=== PATIENT | female | born 1990 | race Caucasian/White ===

== ENCOUNTER 2020-05-06 13:15 | Inpatient (IN) | payer SELFPAY ==
[~2020-05-06] VITALS: Ht 170.2 cm; Wt 49.0 kg
[2020-05-06] MEDS: INSULIN REGULAR, HUMAN 300 UNIT/3 ML VIAL IV ONE ×2 (14:30→15:29)
[2020-05-06] MEDS ORDERED: INSULIN REGULAR, HUMAN 100 UNITS in IV NORMAL SALINE 100 ML IV ONE ×4 (14:30→16:45)
[2020-05-06] MEDS ORDERED: ONDANSETRON 4 MG/2 ML VIAL IV ONE (14:30)
[2020-05-06] MEDS ORDERED: IV NORMAL SALINE 1000 ML BAG IV ONE (14:30)
--- NOTE | 2020-05-06 14:30 | NUR ---
iv insulin not given unble to insert iv line 12u given by md egan
[2020-05-06] MEDS ORDERED: ONDANSETRON 4 MG/2 ML VIAL ONE (14:44)
[2020-05-06] MEDS ORDERED: ONDANSETRON 4 MG/2 ML VIAL IM ONE (14:45)
[2020-05-06] MEDS ORDERED: MORPHINE SULFATE 4 MG/1 ML DISP.SYRIN IM ONE (15:00)
[2020-05-06 15:10] LABS: *BILIRUBIN,URIN NEGATIVE (NEGATIVE); *CLARITY,URINE CLEAR (CLEAR); *COLOR,URINE LIGHT YELLOW (YELLOW); *KETONES,URINE 4+ (NEGATIVE); *UROBILINOGEN,URINE 0.2 E.U./dl (NORMAL); LEUKOCYTE ESTERASE ,URINE NEGATIVE (NEGATIVE); NITRITE, URINE NEGATIVE (NEGATIVE)
[2020-05-06 15:16] LABS: *AMPHETAMINE, URINE POSITIVE (NEGATIVE); *BARBITURATE, URINE NEGATIVE (NEGATIVE); *CANNABINOID, URINE NEGATIVE (NEGATIVE); *COCCAINE, URINE NEGATIVE (NEGATIVE); *OPIATE, URINE POSITIVE (NEGATIVE); *PHENCYCLIDINE SCREEN,URINE NEGATIVE (NEGATIVE)
[2020-05-06 15:18] LABS: *BLOOD, URINE TRACE (NEGATIVE); UGLUCOSE 2+ (NEGATIVE)
[2020-05-06] MEDS ORDERED: MORPHINE SULFATE 4 MG/1 ML DISP.SYRIN ONE (15:18)
[2020-05-06 15:19] LABS: ETHANOL < 3 MG/DL (0-0)
[2020-05-06] MEDS ORDERED: MORPHINE SULFATE 2 MG/1 ML DISP.SYRIN ONE (15:19)
[2020-05-06 15:30] LABS: ALANINE AMINOTRANSFERASE 39 U/L (14-59); ALKALINE PHOSPHATASE 136 U/L (50-136); ASPARTATE AMINOTRANSFERASE 39 U/L (15-37); BILIRUBIN,DIRECT 0.2 mg/dL (0.0-0.2); BILIRUBIN,TOTAL 0.6 mg/dL (0.2-1.0); CREATININE 1.6 mg/dL (0.6-1.3); TOTAL PROTEIN, SERUM 8.3 g/dL (6.4-8.2); UREA NITROGEN, BLOOD 26 mg/dL (7-18)
[2020-05-06] MEDS ORDERED: INSULIN REGULAR, HUMAN 300 UNIT/3 ML VIAL SQ ONE (15:30)
[2020-05-06] MEDS ORDERED: INSULIN REGULAR, HUMAN 300 UNIT/3 ML VIAL ONE ×2 (15:31→20:32)
[2020-05-06 15:44] LABS: CHLORIDE 85 mmol/L (98-107)
[2020-05-06] MEDS ORDERED: OLANZAPINE 10 MG VIAL IM ONE (15:45)
[2020-05-06 15:49] LABS: CARBON DIOXIDE < 5 mmol/L (21-32); GLUCOSE 772 mg/dL (74-106); POTASSIUM 6.6 mmol/L (3.5-5.1)
[2020-05-06 15:56] LABS: BASOPHILS % (AUTO) 0.4 % (0.0-2.0); EOSINOPHILS % (AUTO) 0.1 % (0.0-7.0); HEMATOCRIT 33.9 % (31.2-41.9); HEMOGLOBIN 9.9 g/dL (10.9-14.3); LYMPHOCYTES # (AUTO) 0.7 K/uL (20.0-40.0); LYMPHOCYTES % (AUTO) 7.5 % (20.5-51.5); MEAN CORPUSCULAR HEMOGLOBIN 25.9 uug (24.7-32.8); MEAN CORPUSCULAR HGB CONC 29 g/dL (32.3-35.6); MEAN CORPUSCULAR VOLUME 89.2 fL (75.5-95.3); MONOCYTES # (AUTO) 0.4 K/uL (2.0-10.0); NEUTROPHILS # (AUTO) 8.7 K/uL (1.8-8.9); PLATELET COUNT (AUTO) 398 K/uL (179-408); WHITE BLOOD COUNT (AUTO) 9.9 K/uL (3.8-11.8)
--- NOTE | 2020-05-06 16:08 | NUR ---
Pt is non compliant. ABG not done. DR. Schmidt notified.
[2020-05-06] MEDS ORDERED: ONDANSETRON 4 MG/2 ML VIAL IV PRN (16:45)
[2020-05-06] MEDS ORDERED: LORAZEPAM 2 MG/1 ML VIAL IV PRN (16:45)
[2020-05-06] MEDS ORDERED: ACETAMINOPHEN 650 MG SUPP.RECT RC PRN (16:45)
[2020-05-06 17:09] LABS: BACTERIA,URINE NONE SEEN /HPF (NONE SEEN); SQUAMOUS EPITHELIAL CELL,UR FEW /HPF (NONE SEEN); WBC,URINE 0-3 /HPF (0-3)
[2020-05-06 17:20] LABS: BAND % (MANUAL) 3 % (0-10); LYMPHOCYTES % (MANUAL) 6 % (20-40); MONOCYTES % (MANUAL) 3 % (2-10); NEUTROPHILS % (MANUAL) 88 % (42-75)
--- NOTE | 2020-05-06 17:32 | NUR ---
I will try peripheral IV line insertion, but patient is refusing@this time. notified.
--- NOTE | 2020-05-06 18:32 | NUR ---
DWIGHT [email or web address]
--- NOTE | 2020-05-06 19:00 | NUR ---
PT UNCOOPRATIVE REFUSED IV TO INSERTED AND HEAD STICK
[2020-05-06 20:07] LABS: BASOPHILS % (AUTO) 0.4 % (0.0-2.0); HEMATOCRIT 31.1 % (31.2-41.9); HEMOGLOBIN 9.8 g/dL (10.9-14.3); LYMPHOCYTES # (AUTO) 2.3 K/uL (20.0-40.0); LYMPHOCYTES % (AUTO) 20.5 % (20.5-51.5); MEAN CORPUSCULAR HEMOGLOBIN 26.1 uug (24.7-32.8); MEAN CORPUSCULAR HGB CONC 31 g/dL (32.3-35.6); MEAN CORPUSCULAR VOLUME 83.2 fL (75.5-95.3); MONOCYTES # (AUTO) 0.6 K/uL (2.0-10.0); MONOCYTES % (AUTO) 5.7 % (0.0-11.0); NEUTROPHILS # (AUTO) 8.1 K/uL (1.8-8.9); NEUTROPHILS % (AUTO) 73.4 % (38.5-71.5); PLATELET COUNT (AUTO) 424 K/uL (179-408); RED BLOOD CELL COUNT(AUTO) 3.74 MIL/uL (3.63-4.92); WHITE BLOOD COUNT (AUTO) 11.1 K/uL (3.8-11.8)
[2020-05-06 20:18] LABS: CREATININE 1.2 mg/dL (0.6-1.3); MAGNESIUM 2.3 mg/dL (1.8-2.4); PHOSPHOROUS 3.7 mg/dL (2.5-4.9)
--- NOTE | 2020-05-06 20:21 | NUR ---
report given to INA Maldonado
--- NOTE | 2020-05-06 20:47 | NUR ---
Insulin drip started per DKA pre-preinter physician's order
--- NOTE | 2020-05-06 20:58 | NUR ---
Pt. admitted to CCU 4, under care of DWIGHT Lal Belongs List completed. All belongings with pt no s/s of distress respirations even and unlabored transported pt via gurney
[2020-05-06 21:15] VITALS: BP 110/53
--- NOTE | 2020-05-06 21:15 | NUR ---
ADMITTED PT FROM ER VIA ANEL W/ ADM. DX OF DKA. PT IS VERBALLY RESPONSIVE BUT GARBLED & UNCOOPERATIVE. ON REGULAR INSULIN DRIP @ 3 UNITS/HR ON TED PICC LINE. ON RM AIR W/ O2 SAT OF 100%.ACCUCHECK DONE BS-290 COVERED ACCDG TO SLIDING SCALE.PT. IS INCONT. OF URINE, GOLDSTEIN CATH FR#16 INSERTED W/ CLEAR CARRIE URINE. REFUSED BATH THIS TIME. REPOSITIONED IN BED.
[2020-05-06 22:00] VITALS: BP 126/82
[2020-05-06] MEDS ORDERED: MVI ADULT 10 ML VIAL=1 AMP 10 ML, THIAMINE HCL INJ 100 MG, FOLIC ACID 1 MG, MAGNESIUM S... IV PRN ×5 (22:15)
--- NOTE | 2020-05-06 22:46 | NUR ---
MEDICATED W/ ZOFRAN 4MG IVP FOR NAUSEA.
[2020-05-06 23:00] VITALS: BP 130/75
[2020-05-06] MEDS: CEFTRIAXONE 1 G in IV DEXTROSE 5% 50 ML IV SCH (23:45)
[2020-05-07] VITALS (11 sets, daily range): BP systolic 90–142; BP diastolic 59–75
[2020-05-07] MEDS: IV D5/ 0.9% NACL 1,000 ML IV PRN ×2 (00:19→07:06)
[2020-05-07] MEDS ORDERED: CEFTRIAXONE 1 G VIAL ONE (00:52)
[2020-05-07 01:09] LABS: BILIRUBIN,TOTAL 0.5 mg/dL (0.2-1.0); POTASSIUM 4.2 mmol/L (3.5-5.1)
--- NOTE | 2020-05-07 03:00 | NUR ---
V/S STABLE. SLEEPING WELL.
[2020-05-07 05:30] LABS: BASOPHILS % (AUTO) 0.5 % (0.0-2.0); EOSINOPHILS % (AUTO) 0.5 % (0.0-7.0); HEMATOCRIT 26.4 % (31.2-41.9); HEMOGLOBIN 8.5 g/dL (10.9-14.3); LYMPHOCYTES # (AUTO) 2.1 K/uL (20.0-40.0); LYMPHOCYTES % (AUTO) 28.1 % (20.5-51.5); MEAN CORPUSCULAR HEMOGLOBIN 26.8 uug (24.7-32.8); MEAN CORPUSCULAR HGB CONC 32 g/dL (32.3-35.6); MEAN CORPUSCULAR VOLUME 82.6 fL (75.5-95.3); MONOCYTES # (AUTO) 0.4 K/uL (2.0-10.0); MONOCYTES % (AUTO) 5.7 % (0.0-11.0); NEUTROPHILS % (AUTO) 65.2 % (38.5-71.5); PLATELET COUNT (AUTO) 387 K/uL (179-408); RED BLOOD CELL COUNT(AUTO) 3.19 MIL/uL (3.63-4.92); WHITE BLOOD COUNT (AUTO) 7.6 K/uL (3.8-11.8)
[2020-05-07 05:44] LABS: CREATININE 1.1 mg/dL (0.6-1.3); POTASSIUM 3.9 mmol/L (3.5-5.1)
[2020-05-07 05:49] LABS: BILIRUBIN,TOTAL 0.4 mg/dL (0.2-1.0); MAGNESIUM 1.9 mg/dL (1.8-2.4); PHOSPHOROUS 2.6 mg/dL (2.5-4.9); TOTAL PROTEIN, SERUM 6.5 g/dL (6.4-8.2)
[2020-05-07 05:58] LABS: THYROID STIMULATING HORMONE 0.229 mIU/mL (0.358-3.740)
--- NOTE | 2020-05-07 06:00 | NUR ---
PT REFUSED AM CARE, UNCOOPERATIVE. V/S STABLE.
--- NOTE | 2020-05-07 06:30 | NUR ---
dr gill came in evaluated pt w/ orders.
--- NOTE | 2020-05-07 06:30 | NUR ---
dcd regular insulin drip.
[2020-05-07] MEDS ORDERED: INSULIN GLARGINE,HUM 300 UNITS/3 ML CARTRIDGE SQ ONE (07:00)
[2020-05-07] MEDS ORDERED: DEXTROSE 50% 50 ML DISP.SYRIN IV PRN (07:00)
--- NOTE | 2020-05-07 08:44 | NUR ---
CRITICAL GLUCOSE RESULT CALL FROM THE LAB- [id number]. NOTIFIED DR OLIVARES. PT COVERED WITH REGULAR INSULIN 15UNITS SQ LEFT DELTOID PT ATE A LITTLE BUT MOSTLY LETHARGIC. VERBALLY RESPONSIVE. MAIN IVF OD D5NS DISCONTINUED ORDERED.
[2020-05-07 09:02] LABS: BILIRUBIN,TOTAL 0.2 mg/dL (0.2-1.0); POTASSIUM 3.2 mmol/L (3.5-5.1); TOTAL PROTEIN, SERUM 5.4 g/dL (6.4-8.2)
[2020-05-07] MEDS: INSULIN REGULAR, HUMAN 300 UNIT/3 ML VIAL SQ PRN ×3 (09:19→20:00)
[2020-05-07] MEDS: MAGNESIUM SULFATE/D5W 100 ML IV SCH ×3 (11:19→13:25)
[2020-05-07] MEDS: POTASSIUM CHLORIDE 50 ML IV SCH ×4 (11:19→14:15)
[2020-05-07] MEDS: BLOOD SUGAR DIAGNOSTIC 1 EACH STRIP VI SCH ×4 (11:20→20:21)
[2020-05-07] MEDS: PANTOPRAZOLE SODIUM 40 MG VIAL IV SCH (11:20)
[2020-05-07 12:11] LABS: *URINE HCG, QUAL NEG (NEGATIVE)
--- NOTE | 2020-05-07 12:30 | NUR ---
PT ATTEMPTED TO GO AMA BUT DECIDED TO STAY.
--- NOTE | 2020-05-07 13:00 | NUR ---
PT C/O PAIN THE RIGHT LEG LEVEL 10. MEDICATED WITH NORCO 1 TAB PO. IT APPEARS TO BE THAT PT TOOK SOMETHING FROM HER BELONGINGS BAG AND TOOK SOMETHING. PT GOT GROGGY AND IN DEEP SLEEP . INFORMED RETAIL MARKETING MANAGER AND DR OLIVARES.
[2020-05-07] MEDS ORDERED: NEUTRA PHOS PACKET PO ONE (15:15)
--- NOTE | 2020-05-07 19:30 | NUR ---
REPORT GIVEN TO KOKO BUCKLEY.
[2020-05-07] MEDS: HYDROCODONE/APAP 5-325MG TABLET PO PRN (19:58)
--- NOTE | 2020-05-07 21:30 | NUR ---
patient settled on bed; refused skin assessment; refused to have her belongings check; c/o pain norco given. accucheck as charted and covered
[2020-05-07] MEDS: CEFTRIAXONE 1 G in IV DEXTROSE 5% 50 ML IV SCH (23:16)
[2020-05-08] VITALS: BP 102/64
[2020-05-08] MEDS: BLOOD SUGAR DIAGNOSTIC 1 EACH STRIP VI SCH ×4 (00:08→12:02)
--- NOTE | 2020-05-08 00:30 | NUR ---
acchucheck 125; no coverage; tolerated antibiotics; safety maintained.
[2020-05-08] MEDS: HYDROCODONE/APAP 5-325MG TABLET PO PRN (02:59)
[2020-05-08 04:00] VITALS: BP 108/54
[2020-05-08] MEDS: INSULIN REGULAR, HUMAN 300 UNIT/3 ML VIAL SQ PRN ×3 (04:06→11:57)
[2020-05-08] MEDS: PANTOPRAZOLE SODIUM 40 MG VIAL IV SCH (08:59)
[2020-05-08 09:03] LABS: BASOPHILS % (AUTO) 0.4 % (0.0-2.0); EOSINOPHILS % (AUTO) 0.8 % (0.0-7.0); HEMATOCRIT 27.9 % (31.2-41.9); LYMPHOCYTES # (AUTO) 1.7 K/uL (20.0-40.0); LYMPHOCYTES % (AUTO) 33.6 % (20.5-51.5); MEAN CORPUSCULAR HEMOGLOBIN 26.4 uug (24.7-32.8); MEAN CORPUSCULAR HGB CONC 32 g/dL (32.3-35.6); MONOCYTES # (AUTO) 0.2 K/uL (2.0-10.0); MONOCYTES % (AUTO) 4.8 % (0.0-11.0); NEUTROPHILS # (AUTO) 3.1 K/uL (1.8-8.9); NEUTROPHILS % (AUTO) 60.4 % (38.5-71.5); PLATELET COUNT (AUTO) 331 K/uL (179-408); RED BLOOD CELL COUNT(AUTO) 3.41 MIL/uL (3.63-4.92); WHITE BLOOD COUNT (AUTO) 5.1 K/uL (3.8-11.8)
[2020-05-08 09:28] LABS: MAGNESIUM 1.8 mg/dL (1.8-2.4); PHOSPHOROUS 2.1 mg/dL (2.5-4.9)
[2020-05-08] MEDS ORDERED: NEUTRA PHOS PACKET PO SCH (10:15)
[2020-05-08 10:42] LABS: BILIRUBIN,TOTAL 0.1 mg/dL (0.2-1.0); CREATININE 0.8 mg/dL (0.6-1.3); POTASSIUM 3.6 mmol/L (3.5-5.1); TOTAL PROTEIN, SERUM 6.1 g/dL (6.4-8.2)
--- NOTE | 2020-05-08 13:00 | NUR ---
Pt alert and oriented x 4. Pt in a hurry to leave AMA. Pt refused to sign AMA paper, homeless packet, and tap card. Milieu Manager noted and Primary doctor. PICC line and ID band taken off. No sob noted upon leaving AMA.
[2020-05-09] MEDS ORDERED: PANTOPRAZOLE SODIUM 40 MG TABLET.DR PO SCH (07:00)
== END 2020-05-08 13:00 | disposition left against medical advice (07) | DRG 917 ==
LOC: ER 13:15 → EDBD 13:15 → CCU 20:50 → TELE-TD3 05-07 19:54
PROVIDERS: ADMIT Registered Nurse; ATTEND Family Medicine
PROC: B548ZZA Ultrasonography of Superior Vena Cava, Guidance (ICD-10-PCS; principal; 2020-05-07)
PROC: 02HV33Z Insertion of Infusion Device into Superior Vena Cava, Percutaneous Approach (ICD-10-PCS; principal; 2020-05-07)
DX: T40.601A Poisoning by unspecified narcotics, accidental (unintentional), initial encounter (principal); E11.10 Type 2 diabetes mellitus with ketoacidosis without coma; G92 Toxic encephalopathy; N17.0 Acute kidney failure with tubular necrosis; E87.1 Hypo-osmolality and hyponatremia; F23 Brief psychotic disorder; E86.0 Dehydration; E86.1 Hypovolemia; E87.5 Hyperkalemia; Z59.0 Homelessness; D64.9 Anemia, unspecified; R74.0 Nonspecific elevation of levels of transaminase and lactic acid dehydrogenase [LDH]; T40.1X1A Poisoning by heroin, accidental (unintentional), initial encounter; T52.4X1A Toxic effect of ketones, accidental (unintentional), initial encounter; Y92.89 Other specified places as the place of occurrence of the external cause; F19.10 Other psychoactive substance abuse, uncomplicated
CPT/HCPCS: 36415; 70030-TC; 80307; 83735; 84100; 84443; 84703; 85025; 87086; 93005; A4663; C9113; G0378; G0480; J0696; J1815; J2060; J2270; J2405; J3411; J3475; J3480; J3490; J7030; J7040; J7042; J7050; J7060